=== PATIENT | female | born 1935 | race Caucasian/White ===

== ENCOUNTER 2017-04-18 20:55 | Emergency (ER) | payer MEDICARE ==
[~2017-04-18] VITALS: Ht 167.6 cm; Wt 85.0 kg
[~2017-04-18 20:55] MED LIST: OLME20TA PO
[2017-04-18 20:57] VITALS: BP 161/64
[2017-04-18] MEDS ORDERED: ALBUTEROL SULFATE 2.5 MG/3 ML NPPB ONE (21:30)
[2017-04-18] MEDS ORDERED: SODIUM CHLORIDE 0.9% 1,000ML IVBOLUS ONE (21:30)
[2017-04-18] MEDS ORDERED: SODIUM CHLORIDE FLUSH 10ML SYR IVF ONE (21:30)
[2017-04-18] MEDS ORDERED: ALBUTEROL SULFATE 2.5 MG/3 ML ONE (21:42)
[2017-04-18 22:05] LABS: ASPARTATE AMINO TRANSFERASE 23 U/L (15-37); BLOOD UREA NITROGEN 14 mg/dL (7-18)
[2017-04-18] MEDS ORDERED: SERT25TA3 PO (22:18)
[2017-04-18] MEDS ORDERED: FISH1CAP PO (22:19)
[2017-04-18] MEDS ORDERED: CHOL100015 PO (22:20)
[2017-04-18] MEDS ORDERED: [UNRECOGNIZED DRUG - CODE] PO (22:20)
== END 2017-04-18 22:51 | disposition home or self-care (01) ==
LOC: ED 22:40
DX: J02.8 Acute pharyngitis due to other specified organisms (principal); R05 Cough; R06.02 Shortness of breath; Z90.710 Acquired absence of both cervix and uterus
CPT/HCPCS: 36415; 71010; 80053; 83605; 85025; 94640; 96360; 99285; J7030; J7613

== ENCOUNTER → 2017-11-21 | Outpatient (CLI) | payer MEDICARE ==
[~2017-11-21] MED LIST changes: +CHOL100015 PO; +FISH1CAP PO; -OLME20TA PO; +OLME20TA19 PO; +SERT25TA3 PO; +[UNRECOGNIZED DRUG - CODE] PO
== END | disposition home or self-care (01) ==
LOC: CFH 09:45
PROVIDERS: ATTEND Family Medicine
DX: Z13.820 Encounter for screening for osteoporosis (principal); M85.80 Other specified disorders of bone density and structure, unspecified site; N95.1 Menopausal and female climacteric states; M89.9 Disorder of bone, unspecified
CPT/HCPCS: 77080

== ENCOUNTER 2019-10-15 13:00 | Emergency (ER) | payer MEDICARE ==
[~2019-10-15] VITALS: Ht 167.6 cm; Wt 87.8 kg
[~2019-10-15 13:00] MED LIST changes: +OLME20TA17 PO; -OLME20TA19 PO
--- NOTE | 2019-10-15 14:10 | NUR ---
Milagros ruiz in ED - 10/15/19 at 1418 by [employer]: PT AMB TO ROOM FROM [facility].
--- NOTE | 2019-10-15 14:19 | NUR ---
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
[2019-10-15 14:52] LABS: BASOPHILS # (AUTO) 0.01 x10^3/uL (0-0.1); BASOPHILS % (AUTO) 0 % (0-1); EOSINOPHILS # (AUTO) 0.15 x10^3/uL (0-0.4); EOSINOPHILS % (AUTO) 2 % (1-7); LYMPHOCYTES # (AUTO) 1.82 x10^3/uL (1-3.4); LYMPHOCYTES % (AUTO) 27 % (22-44); MD NO; MEAN CORPUSCULAR HEMOGLOBIN 29.4 pg (27.0-34.8); MEAN CORPUSCULAR HGB CONC 33.3 g/dL (32.4-35.8); MEAN CORPUSCULAR VOLUME 88.2 fL (80-100); MEAN PLATELET VOLUME 10.1 fL (7.4-10.4); MONOCYTES # (AUTO) 0.35 x10^3/uL (0.2-0.8); MONOCYTES % (AUTO) 5 % (2-9); NEUTROPHILS # (AUTO) 4.44 x10^3/uL (1.8-6.8); NEUTROPHILS % (AUTO) 66 % (42-75); PLATELET COUNT 172 x10^3/uL (130-400); RED BLOOD COUNT 5.12 x10^6/uL (3.82-5.3)
--- NOTE | 2019-10-15 14:54 | NUR ---
REPORT TO JESSIKA WILKINSON WHO ASSUMED CARE OF PT.
--- NOTE | 2019-10-15 15:03 | NUR ---
REPORT RC'VD FROM FRANKY ROSEN. PT TO IMAGING VIA [facility].
[2019-10-15 15:05] LABS: MICROSCOPIC AUTO
[2019-10-15 15:08] LABS: ALBUMIN 3.8 g/dL (3.4-5.0); ANION GAP 7 mmol/L (5-15); CALCIUM 9.4 mg/dL (8.5-10.1); CHLORIDE 112 mmol/L (98-107)
[2019-10-15 15:10] LABS: CULTURE INDICATED? YES
[2019-10-15 15:12] LABS: CREATINE KINASE, TOTAL 60 U/L (26-192); CREATININE 0.84 mg/dL (0.55-1.02)
[2019-10-15 16:03] VITALS: BP 151/64
--- NOTE | 2019-10-15 16:13 | NUR ---
RV'WD POC WITH PT, CHART UP FOR RECHECK.
--- NOTE | 2019-10-15 17:17 | NUR ---
D/C INSTRUCTIONS, MEDS & F/U APPT RV'WD WITH PT, SHE VERBALIZES UNDERSTANDING. INSTRUCTED PT TO RETURN FOR ANY WORSENING SYMPTOMS. RX GIVEN X1. PT AMBULATED OUT OF ED WITH FRIEND WITHOUT DIFFICULTY.
== END 2019-10-15 17:19 | disposition home or self-care (01) ==
LOC: ED 15:15
DX: M16.11 Unilateral primary osteoarthritis, right hip (principal); M16.12 Unilateral primary osteoarthritis, left hip; N30.00 Acute cystitis without hematuria; M79.662 Pain in left lower leg; I10 Essential (primary) hypertension
CPT/HCPCS: 36415; 80048; 81001; 82040; 82550; 85025; 87086; 99284

== ENCOUNTER → 2020-08-15 | Outpatient (CLI) | payer MEDICARE | END | disposition home or self-care (01) | LOC: CFH 11:05 | PROVIDERS: ATTEND Family Medicine | DX: N95.8 Other specified menopausal and perimenopausal disorders (principal) | CPT/HCPCS: 77080 ==

== ENCOUNTER 2020-10-12 12:37 | Emergency (ER) | payer MEDICARE ==
[~2020-10-12] VITALS: Ht 162.6 cm; Wt 80.0 kg
[2020-10-12] MEDS ORDERED: MORPHINE SULFATE 4 MG/ML, 1ML ONE ×2 (13:08→14:18)
[2020-10-12] MEDS ORDERED: ONDANSETRON 2MG/ML, 2ML ONE (13:08)
[2020-10-12] MEDS: MORPHINE SULFATE 4 MG/ML, 1ML IVPush PRN ×2 (13:15→14:20)
--- NOTE | 2020-10-12 13:19 | NUR ---
MEDICATED PER EMAR FOR LEFT CHEST PAIN AT 10/10 TO XRAY AFTER MEDICATION (KEY PERSON TO WATCH PULSE OX)
--- NOTE | 2020-10-12 13:28 | NUR ---
APPLIED 2L O2 AFTER ADMIN OF MORPHINE
[2020-10-12] MEDS ORDERED: SODIUM CHLORIDE FLUSH 10ML SYR IVF ONE (13:30)
[2020-10-12] MEDS ORDERED: ONDANSETRON 2MG/ML, 2ML IVPush ONE (13:30)
[2020-10-12 14:05] LABS: BASOPHILS % (AUTO) 0 % (0-1); EOSINOPHILS % (AUTO) 1 % (1-7); LYMPHOCYTES % (AUTO) 9 % (22-44); MEAN CORPUSCULAR HEMOGLOBIN 28.3 pg (27.0-34.8); MEAN CORPUSCULAR HGB CONC 33.4 g/dL (32.4-35.8); MEAN PLATELET VOLUME 9.3 fL (7.4-10.4); MONOCYTES % (AUTO) 4 % (2-9); NEUTROPHILS % (AUTO) 86 % (42-75); PLATELET COUNT 145 x10^3/uL (130-400); RED BLOOD COUNT 5.02 x10^6/uL (3.82-5.3); RED CELL DISTRIBUTION WIDTH 14.2 % (9.6-15.2)
[2020-10-12 14:14] LABS: ANION GAP 4 mmol/L (5-15); CALCIUM 9.8 mg/dL (8.5-10.1); CHLORIDE 110 mmol/L (98-107); CREATININE 0.82 mg/dL (0.55-1.02)
--- NOTE | 2020-10-12 14:23 | NUR ---
MEDICATED FOR PAIN. VSS
[2020-10-12 14:48] LABS: MD SCAN
--- NOTE | 2020-10-12 15:50 | NUR ---
Patient/Caregiver given discharge instructions and they have confirmed that they understand the instructions. Patient ambulatory with steady gait.
[2020-10-12 15:51] VITALS: BP 144/65
== END 2020-10-12 15:52 ==
LOC: ED 12:52
DX: G89.11 Acute pain due to trauma (principal); R07.81 Pleurodynia; I10 Essential (primary) hypertension; Z90.89 Acquired absence of other organs; Z90.710 Acquired absence of both cervix and uterus
CPT/HCPCS: 36415; 71046; 80048; 82040; 85025; 96374; 96375; 96376; 99284; J2270; J2405